=== PATIENT | male | born 1945 | race Caucasian/White ===

== ENCOUNTER → 2017-02-18 | Outpatient (CLI) | payer MEDICARE ==
[~2017-02-18] MED LIST: ADVAIR 2501 DISK W/D PO; ALBUTEROL17 GM INH; ASPIRIN325 M1 PO; BAYER CHEWABLE81 MG; COREG6.25 MG PO; FERROUS GLUCON324 MG PO; IBUPROFEN PO; LEVOTHROID112 MCG PO; LEVOTHYROXINE100 MC1 PO; LISINOPRIL20 MG PO; MULTI VITAMIN1 EACH PO; NAPROSYN500 MG PO; PRILOSEC20 MG PO; PROAIR HFA8.5 GM IH; SIMVASTATIN40 MG PO; WALGREENS PHARMACY; [UNRECOGNIZED DRUG - OTHER] PO
== END | disposition home or self-care (01) ==
LOC: SGUS 07:55
DX: N50.82 Scrotal pain (principal); N43.41 Spermatocele of epididymis, single; I86.1 Scrotal varices
CPT/HCPCS: 93975